=== PATIENT | male | born 1995 | race Two or more races ===

== ENCOUNTER 2017-07-31 14:16 | Emergency (ER) | payer OTHER ==
[~2017-07-31] VITALS: Ht 167.6 cm; Wt 81.6 kg
[2017-07-31] MEDS ORDERED: SODIUM CHLORIDE 0.9% 1,000 ML IVB ONE (14:31)
[2017-07-31] MEDS ORDERED: LORazepam 2MG/ML-1ML VIAL IV ONE (14:45)
[2017-07-31 15:05] LABS: Basophils # (auto) 0 uL; Basophils % (auto) 0.5 % (0.0-2.0); Eosinophils # (auto) 0.1 uL; Eosinophils % (auto) 0.8 % (0.0-7.0); Hematocrit 45.7 % (41.0-53.0); Hemoglobin 15.4 g/dL (13.5-17.5); Lymphocytes # (auto) 2.6 uL; Lymphocytes % (auto) 28.1 % (10.0-50.0); Mean Corpuscular Hemoglobin 29.7 pg (28.0-32.0); Mean Corpuscular Hgb Conc. 33.8 g/dL (32.0-36.0); Mean Corpuscular Volume 88.1 fL (80.0-100.0); Monocytes # (auto) 1.1 uL; Monocytes % (auto) 12.4 % (0.0-12.0); Neutrophils # (auto) 5.4 uL; Neutrophils % (auto) 58.2 % (37.0-80.0); Nucleated Red Blood Cells % 0.2 %; Platelet Count (auto) 270 10^3/uL (140-450); Red Blood Cells 5.19 10^6/uL (4.5-5.90); Red Cell Distribution Width 13.9 % (11.8-14.3); White Blood Cell 9.3 10^3/uL (4.4-10.8)
[2017-07-31 15:34] LABS: Alanine Aminotransferase 47 U/L (16-61); Albumin 4.5 g/dL (3.4-5.0); Alkaline Phosphatase 100 U/L (45-117); Anion Gap 11 (5-15); Aspartate Aminotransferase 23 U/L (15-37); BUN/Creatinine Ratio 13.2; Bilirubin, Total 0.6 mg/dL (0.2-1.0); Blood Alcohol < 3.0 mg/dL (0-5); Blood Urea Nitrogen 14 mg/dL (7-18); Calcium 9.1 mg/dL (8.5-10.1); Carbon Dioxide 24 mmol/L (21-32); Chloride 105 mmol/L (98-107); GFR African American 111 mL/min; GFR Non-African American 92 mL/min; Glucose 126 mg/dL (74-106); Magnesium 2.3 mg/dL (1.6-2.6); Potassium 3.5 mmol/L (3.5-5.1); Sodium 140 mmol/L (136-145); Total Protein 8.2 g/dL (6.4-8.2)
[2017-07-31 15:46] LABS: Barbiturate Scree,Urine NEGATIVE (NEGATIVE); Benzodiazephine Screen, Urine NEGATIVE (NEGATIVE); Cannabinoid Screen, Urine POSITIVE (NEGATIVE); Cocaine Screen, Urine NEGATIVE (NEGATIVE); Opiate Scree,Urine NEGATIVE (NEGATIVE); Phencyclidine Screen, Urine NEGATIVE (NEGATIVE)
[2017-07-31 15:48] LABS: Amphetamine Screen, Urine POSITIVE (NEGATIVE)
[2017-07-31 16:25] VITALS: BP 119/84
== END 2017-07-31 16:31 | disposition home or self-care (01) ==
LOC: ER 14:18
DX: R00.2 Palpitations (principal); F41.9 Anxiety disorder, unspecified; F15.90 Other stimulant use, unspecified, uncomplicated
CPT/HCPCS: 36415; 71045; 80053; 80307; 80320; 83735; 85025; 93005; 94761; 96361; 96374; 99285; J2060; J7030

== ENCOUNTER 2020-06-01 03:13 | Emergency (ER) | payer OTHER | END 2020-06-01 03:38 | disposition left against medical advice (07) | LOC: ER 03:16 | DX: Z53.21 Procedure and treatment not carried out due to patient leaving prior to being seen by health care provider ==